=== PATIENT | female | born 1970 | race African-American/Black ===

== ENCOUNTER → 2018-10-10 09:58 | Outpatient (CLI) | payer BC, SELFPAY ==
--- NOTE | 2018-10-10 10:03 | BI_ITS ---
MAMMOGRAPHY - BILATERAL SCREENING REASON FOR EXAM: Female, 48 years old. Routine annual screening examination. PERTINENT HISTORY: Non-contributory. TECHNIQUE: Digital bilateral breast liban (3D mammographic acquisition) in the CC and MLO projections. 2-D mediolateral oblique (MLO) and craniocaudad (CC) views of both breasts were obtained. CAD: Full Field Digital Mammography with Computer Added Detection was performed. COMPARISON: Comparison is made with prior study dated December 18, 2016 and April 19, 2015. FINDINGS: Breast Composition: There are scattered areas of fibroglandular density. There are no dominant masses or suspicious calcifications. Stable benign-appearing bilateral axillary lymph nodes. No other significant abnormalities are identified. There has been no significant change since the prior study. BI/SCREENING MAMM (CAD), BILAT IMPRESSION: Stable bilateral screening mammogram. Yearly follow-up mammogram recommended. (A) ASSESSMENT CATEGORY: BIRADS Category 2: Benign. A letter regarding these results will be sent to the patient by the facility within 30 days. Approximately 10% of breast cancers are not detected by mammography. A normal mammogram should not delay biopsy of a clinically suspicious abnormality. [id number] Electronically Signed: Christiano Pinto MD at 11:30 EST Tel [phone], Service support ,
--- OUTSIDE RECORDS SUMMARY | 2018-11-26 00:28 | XMS RPT_ITS ---
:1970 Author Organization [facility] Care Team Providers Name Role Phone FARAZ ALDRICH, MS. SAUL Grider Attending Unavailable NIKIA CHAPMAN, DR. ANABELLA Hummel Primary Care Unavailable FARAZ ALDRICH, MS. SAUL Grider Attending Unavailable FARAZ ALDRICH, MS. SAUL Grider Referring Unavailable NIKIA CHAPMAN, DR. ANABELLA Hummel Primary Care Unavailable Concetta Briceño Attending Unavailable Saul Covarrubias LIME BURNER-Brian Primary Care Unavailable Saul Covarrubias NP-Brian Referring Unavailable PROBLEMS PROBLEMS DATE TYPE CONDITION / CODE ATTENDING STATUS SOURCE 02/11/2018 Admitting Vitamin D FARAZ ELINOR, . Active [facility] Diagnosis deficiency, [facility] unspecified / Repository E55.9(ICD-10) 02/11/2018 Admitting Deficiency of FARAZ ALDRICH, . Active [facility] Diagnosis other specified B [facility] group vitamins / Repository E53.8(ICD-10) 02/11/2018 Admitting Hypothyroidism, FARAZ ALDRICH, . Active [facility] Diagnosis unspecified / [facility] E03.9(ICD-10) Repository PROCEDURES PROCEDURES No Procedure Records FoundRESULTS RESULTS SCREENING MAMM (CAD), Observed: 10/10/2018 Status: F Source: [place] BILAT 10:03 AM [facility] [place] [facility] Imaging Services [address] [place] [address] SCREENING MAMM (CAD), BILAT MR#: [id number] Acct: [id number] Name: SENG ESPINOZA Rep #: [id number] : 1970 F 48 From: Christiano Pinto MD PCP: Saul Pablo Status: REG CLI Study: SCREENING MAMM (CAD), BILAT Date of Exam: 10/10/18 Exam# [id number] Ordering Dr: Concetta Briceño MD MAMMOGRAPHY - BILATERAL SCREENING REASON FOR EXAM: Female, 48 years old. Routine annual screening examination. PERTINENT HISTORY: Non-contributory. TECHNIQUE: Digital bilateral breast liban (3D mammographic acquisition) in the CC and MLO projections. 2-D mediolateral oblique (MLO) and craniocaudad (CC) views of both breasts were obtained. CAD: Full Field Digital Mammography with Computer Added Detection was performed. COMPARISON: Comparison is made with prior study dated December 18, 2016 and April 19, 2015. FINDINGS: Breast Composition: There are scattered areas of fibroglandular density. There are no dominant masses or suspicious calcifications. Stable benign-appearing bilateral axillary lymph nodes. No other significant abnormalities are identified. There has been no significant change since the prior study. BI/SCREENING MAMM (CAD), BILAT IMPRESSION: Stable bilateral screening mammogram. Yearly follow-up mammogram recommended. (A) ASSESSMENT CATEGORY: BIRADS Category 2: Benign. A letter regarding these results will be sent to the patient by the facility within 30 days. Approximately 10% of breast cancers are not detected by mammography. A normal mammogram should not delay biopsy of a clinically suspicious abnormality. [id number] Electronically Signed: Christiano Pinto MD at 11:30 EST Tel [phone], Service support , CC: Concetta Briceño MD; Saul AMOR Head Worker: Signed CBC Collected: 02/11/2018 Status: F Source: [facility] 8:10 AM [place] REPOSITORY TYPE CODE TESTS RESULT OUT OF REFERENCE UNITS RANGE LAB WBC(LOINC) 4.60-10.80 10 3/mcL WBC 4.70 LAB RBCCT(LOINC 4.20-5.40 10 6/mcL ) RBC 4.58 LAB HGB(LOINC) 12.0-16.0 G/dL Hgb 13.9 LAB HCT(LOINC) 37.0-47.0 % Hct 40.7 LAB MCV(LOINC) 80.0-94.0 fL MCV 88.8 LAB MCH(LOINC) 27.0-31.2 pg MCH 30.4 LAB MCHC(LOINC) 33.0-37.0 G/dL MCHC 34.2 LAB RDW(LOINC) 11.5-14.5 % RDW 13.1 LAB PLT(LOINC) 130-400 10 3/mcL Platelet 255 LAB MPV(LOINC) 7.4-10.4 fL MPV 8.6 Performed By: #### CBC, ADIFF, ANEU, LIPID, CMP, GFR, TSH #### [id number] [place], [place] [address] #### B12, VIDH #### [address] [address] .AUTO DIFF Collected: 02/11/2018 Status: F Source: [facility] 8:10 AM [facility] REPOSITORY TYPE CODE TESTS RESULT OUT OF REFERENCE UNITS RANGE LAB REYMUNDO(LOINC) 37.0-80.0 % Neutrophil % 45.0 LAB LYM(LOINC) 10.0-50.0 % Lymphocyte % 44.4 LAB MON(LOINC) 1.7-13.0 % Monocyte % 7.4 LAB EO(LOINC) 0.0-7.0 % Eosinophil % 2.3 LAB BAS(LOINC) 0.0-2.5 % Basophil % 0.9 LAB ABLYM(LOIN 0.77-3.85 10 3/mcL C) Lymphocyte, 2.10 Absolute LAB LALITO(LOINC 0.15-1.00 10 3/mcL ) Monocyte, 0.30 Absolute LAB AEOS(LOINC 0.00-0.40 10 3/mcL ) Eosinophil, 0.10 Absolute LAB ABAS(LOINC 0.00-0.19 10 3/mcL ) Basophil, 0.00 Absolute Performed By: #### CBC, ADIFF, ANEU, LIPID, CMP, GFR, TSH #### [address] [address] #### B12, VIDH #### [place] [id number] .NEUABS Collected: 02/11/2018 Status: F Source: [facility] 8:10 AM [facility] REPOSITORY TYPE CODE TESTS RESULT OUT OF REFERENCE UNITS RANGE LAB ANEU(LOINC) 2.85-6.16 10 3/mcL Low Neutrophil, 2.10 Absolute Performed By: #### CBC, ADIFF, ANEU, LIPID, CMP, GFR, TSH #### [address] [address] #### B12, VIDH #### [place] [address] LIPID Collected: 02/11/2018 Status: F Source: [facility] 8:10 AM [facility] REPOSITORY TYPE CODE TESTS RESULT OUT OF REFERENCE UNITS RANGE LAB CHOL(LOINC 131-200 mg/dL ) Cholesterol 151 Result Comment: Cholesterol Reference Interval: Less than 200 Desirable 200-239 Borderline high risk 240 and above High risk LAB TRIG(LOINC) 40-150 mg/dL Triglycerides 73 Result Comment: Triglyceride Reference Interval: Less than 150 Normal 150-199 Borderline high risk 200-499 High risk 500 or higher Very high risk LAB HD(LOINC) 35-90 mg/dL HDL Cholesterol 36 Result Comment: HDL Reference Interval: Less than 40 Low - high risk 60 or above Optimal/lowers risk LAB LDL(LOINC) 0-130 mg/dL LDL Cholesterol 100 Result Comment: LDL is a calculated result and requires a 12-hr fast. LDL Reference Interval: Less than 100 Optimal 100-129 Near or above optimal 130-159 Borderline high risk 160-189 High risk 190 and above Very high risk Performed By: #### CBC, ADIFF, ANEU, LIPID, CMP, GFR, TSH #### [place] [place], [place] [address] #### B12, VIDH #### [place] [address] CMP Collected: 02/11/2018 Status: F Source: [facility] 8:10 AM [facility] REPOSITORY TYPE CODE TESTS RESULT OUT OF REFERENCE UNITS RANGE LAB 1547-9 70-105 mg/dL GLUCOSE 90 LAB NA(LOINC) 136-146 mEq/L Sodium Level 138 LAB K(LOINC) 3.5-5.1 mEq/L Potassium Level 4.2 LAB CL(LOINC) 98-107 mEq/L Chloride 105 LAB CO2(LOINC) 22-29 mEq/L CO2 24 LAB EBAL(LOINC mEq/L ) Electrolyte Balance 9.0 LAB BUN(LOINC) 7.0-18.0 mg/dL BUN 12.9 LAB CRE(LOINC) 0.6-1.2 mg/dL Creatinine Lvl (s) 0.8 LAB BC(LOINC) 7-27 ratio BUN/Creatinine 16 Ratio LAB CA(LOINC) 8.4-10.2 mg/dL Calcium Lvl 9.5 LAB PROT(LOINC 6.0-8.3 G/dL ) Total Protein 7.3 LAB ALB(LOINC) 3.5-5.0 G/dL Albumin Level 4.3 LAB GLB(LOINC) G/dL Globulin 3.0 LAB AG(LOINC) 1.1-2.5 ratio A/G Ratio 1.4 LAB BILT(LOINC 0.2-1.0 mg/dL ) Bili Total 0.5 LAB AP(LOINC) 40-135 IU/L Alk Phos 102 LAB AST(LOINC) 10-40 IU/L AST/SGOT 16 LAB ALT(LOINC) 10-35 IU/L ALT/SGPT 20 Performed By: #### CBC, ADIFF, ANEU, LIPID, CMP, GFR, TSH #### [address] [address] #### B12, VIDH #### [place] [address] .GFR Collected: 02/11/2018 Status: F Source: [facility] 8:10 AM [facility] REPOSITORY TYPE CODE TESTS RESULT OUT OF REFERENCE UNITS RANGE LAB GFRAA(LOINC ml/min/1.73 ) sqm GFR 100 Vincentian Result Comment: GFR Population mean for , Non- Americans Ages 20-29 = 116 mL/min/1.73 sq.m. Ages 30-39 = 107 mL/min/1.73 sq.m. Ages 40-49 = 99 mL/min/1.73 sq.m. Ages 50-59 = 93 mL/min/1.73 sq.m. Ages 60-69 = 85 mL/min/1.73 sq.m. Ages 70+ = 75 mL/min/1.73 sq.m. Chronic Kidney Disease: Less than 60 mL/min/1.73 square meters End Stage Renal Disease: Less than 15 mL/min/1.73 square meters LAB GFRNO(LOINC) ml/min/1.73sqm GFR Non- >60 Result Comment: GFR Population mean for , Non- Americans Ages 20-29 = 116 mL/min/1.73 sq.m. Ages 30-39 = 107 mL/min/1.73 sq.m. Ages 40-49 = 99 mL/min/1.73 sq.m. Ages 50-59 = 93 mL/min/1.73 sq.m. Ages 60-69 = 85 mL/min/1.73 sq.m. Ages 70+ = 75 mL/min/1.73 sq.m. Chronic Kidney Disease: Less than 60 mL/min/1.73 square meters End Stage Renal Disease: Less than 15 mL/min/1.73 square meters Performed By: #### CBC, ADIFF, ANEU, LIPID, CMP, GFR, TSH #### [address] [address] #### B12, VIDH #### [address] [address] TSH Collected: 02/11/2018 Status: F Source: [facility] 8:10 AM [facility] REPOSITORY TYPE CODE TESTS RESULT OUT OF RANGE REFERENCE UNITS LAB TSH(LOINC) 0.27-4.20 mcIU/mL High TSH 4.46 Result Comment: Above normal(expected)range Performed By: #### CBC, ADIFF, ANEU, LIPID, CMP, GFR, TSH #### [address] [address] #### B12, VIDH #### [address] [address] B12 Collected: 02/11/2018 Status: F Source: [facility] 8:10 AM [facility] REPOSITORY TYPE CODE TESTS RESULT OUT OF REFERENCE UNITS RANGE LAB B12(LOINC) 211-911 pg/mL High Vitamin B12 1005 Lvl Performed By: #### CBC, ADIFF, ANEU, LIPID, CMP, GFR, TSH #### [address] [address] #### B12, VIDH #### [address] [address] VIDH Collected: 02/11/2018 Status: F Source: [facility] 8:10 AM [facility] REPOSITORY TYPE CODE TESTS RESULT OUT OF RANGE REFERENCE UNITS LAB VIDH(LOINC) ng/mL Vit. D 33 25-Hydroxy Result Comment: Interpretive Values Based on Total 25(OH)D: Severe Deficiency <20 ng/mL Mild to Moderate Deficiency 20-30 ng/mL Optimum Levels 30-100 ng/mL Toxicity Possible >100 ng/mL Performed By: #### CBC, ADIFF, ANEU, LIPID, CMP, GFR, TSH #### [address] [address] #### B12, VIDH #### [address] [address] ALLERGIES ALLERGIES No Allergies Records FoundENCOUNTERS ENCOUNTERS ADMIT/DISCHARGE ACCOUNT NUMBER ADMITTING ENCOUNTER LOCATION SOURCE CLASS 10/10/2018 [id number] Ambulatory [facility] ding:[facility] Repository 02/18/2018/05/02/20 [id number] Ambulatory BBuilding:[address] Repository 02/11/2018/02/16/20 [id number] Ambulatory [address] ding:[facility] Repository PAYERS PAYERS ENCOUNTER GUARANTOR PAYER SUBSCRIBER SOURCE 10/10/2018 SENG E Primary SENG E [place] [id number] Insurance:ANTHEMPolicy SIMSDOB: [place], [place] Number: [id number] [facility] [address]Duy: [phone]) [id number] Repository [phone] (HP) Date:[id number] [id number]: 10/10/2018 Secondary NOT GIVENUNK [place] Insurance:SELF PAY [facility] Number: Effective Repository Date:2018-08-22 02/18/2018 SENG E [facility] [place] [place] SIMSDOB: Insurance:ANTHEM BLUE SIMSDOB: [facility] [address] [facility] [id number] Repository [address] Number: [place], [place] [id number] [place], [place] [address]Dqv: [phone]) Date:2018-02-11 [id number]: (HP) [id number] Name:BPO BOX (HP)Tel: [phone] [place] [phone] (WP) [phone]: 02/11/2018 [facility] SIMSDOB: Insurance:ANTHEM BLUE SIMSDOB: [facility] [id number] Repository [facility] Number: [place] [id number] [place], [place] [address]Xpx: [phone]) Date:2018-02-11 [id number]: (HP) [phone] [phone] Name:B[address] BOX (HP)Tel: 000) [phone] Goodman [phone] (WP) [phone]:
== END ==
PROVIDERS: Family Provider Nurse Practitioner Primary Care; PCP Nurse Practitioner Primary Care; Referring Provider Nurse Practitioner Primary Care; Visit Provider Obstetrics & Gynecology
DX: Z12.31 Encounter for screening mammogram for malignant neoplasm of breast (principal)
CPT/HCPCS: 77063; 77067

== ENCOUNTER → 2019-04-17 14:11 | Outpatient (CLI) | payer BC, SELFPAY ==
[2019-04-17 16:26] LABS: Hemoglobin 13.6 g/dl (12.0-15.0); Mean Corp Hgb Conc 33.2 g/gl (32-36); Mean Corpuscular Hgb 29.4 pg (27.0-32.0); Mean Corpuscular Volume 88.7 fL (81-99); Mean Platelet Vol. 10.9 fl (6.2-12.0); Platelet Count 243 K/mm3 (150-450); RBC Distribution Width SD 38.2 fl (35.1-43.9); Red Blood Count 4.62 M/mm3 (4.2-5.4); White Blood Count 5.2 K/mm3 (4.4-11.0)
[2019-04-17 16:29] LABS: Scan Indicated on CBC? Y/N NO
[2019-04-17 16:50] LABS: Anion Gap 5 (5-15); BUN 17 mg/dL (7-18); BUN/Creat Ratio 20.1 RATIO (10-20); Calcium,Total 9.5 mg/dL (8.5-10.1); Chloride 106 mmol/L (98-107); Creatinine, Serum 0.85 mg/dL (0.55-1.02); EST Glomerular Filtration Rate 76 mL/min (>60); Est Glom Filt Rate - Afr Amer 92 mL/min (>60); Glucose 83 mg/dL (74-106); Potassium 3.9 mmol/L (3.5-5.1); Sodium Level 137 mmol/L (136-145)
== END ==
PROVIDERS: Family Provider Nurse Practitioner Primary Care; PCP Nurse Practitioner Primary Care; Referring Provider Orthopaedic Surgery; Visit Provider Orthopaedic Surgery
DX: Z01.818 Encounter for other preprocedural examination (principal); Z01.810 Encounter for preprocedural cardiovascular examination; I10 Essential (primary) hypertension
CPT/HCPCS: 36415; 80048; 85027

== ENCOUNTER → 2019-10-23 08:24 | Outpatient (CLI) | payer BC, SELFPAY ==
--- NOTE | 2019-10-23 08:27 | BI_ITS ---
MAMMOGRAPHY - BILATERAL SCREENING 3-D TOMOSYNTHESIS REASON FOR EXAM: Female, 49 years old. Annual screening mammogram. PERTINENT HISTORY: No significant family history. TECHNIQUE: 2-D mammograms and 3-D Tomosynthesis of the breast (s) were performed. CAD was performed. COMPARISON: October 10, 2018, December 18, 2016 FINDINGS: The breast composition is almost entirely fat. Scattered benign calcifications are seen. No dense spiculated masses or suspicious microcalcifications are identified. No architectural distortion is identified. There is no skin thickening or retraction. Stable lymph nodes. There has been no significant change since the prior study. BI/SCREEN MAMM (CAD) W/LAWR[place] BILAT IMPRESSION: No mammographic signs of malignancy. Routine yearly mammograms recommended. ASSESSMENT CATEGORY: BIRADS Category 2: Benign. A letter regarding these results will be sent to the patient by the facility within 30 days. FOLLOW UP RECOMMENDATION: Yearly follow up mammogram recommended. (A) Approximately 10% of breast cancers are not detected by mammography. A normal mammogram should not delay biopsy of a clinically suspicious abnormality. Electronically Signed: Param Iraheta MD at 13:10 EST , Service support ,
[2019-10-23 12:42] LABS: HIV - WCH Non-Reactive (Nonreactive); Hepatitis C Antibody Non-Reactive (Nonreactive)
[2019-10-23 13:07] LABS: Chlamydia Trachomatis by PCR Negative (Negative); Neisserai gonorrhoeae by PCR Negative (Negative); Probe Check PASS; Sample Adequacy Control PASS; Specimen Processing Control PASS
[2019-10-29 02:23] LABS: Rapid Plasmin Reagin (RPR) NONREACTIVE (NONREACTIVE)
== END ==
LOC: OPBI 08:27 → WOBLAB 10:15
PROVIDERS: Family Provider Nurse Practitioner Primary Care; PCP Nurse Practitioner Primary Care; Referring Provider Obstetrics & Gynecology; Visit Provider Obstetrics & Gynecology
DX: Z11.3 Encounter for screening for infections with a predominantly sexual mode of transmission (principal); Z12.31 Encounter for screening mammogram for malignant neoplasm of breast
CPT/HCPCS: 36415; 77063; 77067; 86592; 86703; 86803; 87491; 87591

== ENCOUNTER → 2020-11-07 10:59 | Outpatient (CLI) | payer BC, SELFPAY ==
--- NOTE | 2020-11-07 11:03 | BI_ITS ---
MAMMOGRAPHY - BILATERAL SCREENING REASON FOR EXAM: Female, 50 years old. Routine annual screening examination. PERTINENT HISTORY: Non-contributory. TECHNIQUE: Digital bilateral breast lawrence (3D mammographic acquisition) in the CC and MLO projections. 2-D mediolateral oblique (MLO) and craniocaudad (CC) views of both breasts were obtained. CAD: Full Field Digital Mammography with Computer Added Detection was performed. COMPARISON: Comparison is made with prior study dated 10/23/2019 and 10/10/2018. FINDINGS: Breast Composition: The breasts are almost entirely fatty. There are no dominant masses or suspicious calcifications. Stable benign-appearing bilateral axillary lymph nodes. No other significant abnormalities are identified. There has been no significant change since the prior study. BI/SCREEN MAMM (CAD) W/LAWRENCE BILAT IMPRESSION: Stable bilateral screening mammogram. Yearly follow-up mammogram recommended. (A) ASSESSMENT CATEGORY: BIRADS Category 2: Benign. A letter regarding these results will be sent to the patient by the facility within 30 days. Approximately 10% of breast cancers are not detected by mammography. A normal mammogram should not delay biopsy of a clinically suspicious abnormality. [id number] Electronically Signed: Christiano Pinto, at 13:19 EST , Service support ,
== END ==
PROVIDERS: PCP Nurse Practitioner Primary Care; Referring Provider Nurse Practitioner Primary Care; Visit Provider Nurse Practitioner Primary Care
DX: Z12.31 Encounter for screening mammogram for malignant neoplasm of breast (principal)
CPT/HCPCS: 77063; 77067